=== PATIENT | female | born 1980 | race African-American/Black ===

== ENCOUNTER 2017-09-08 17:27 | Emergency (ER) | payer OTHER ==
[~2017-09-08] VITALS: Ht 165.1 cm; Wt 75.0 kg
[2017-09-08 19:20] LABS: CLARITY URINE CLEAR (CLEAR); COLOR URINE YELLOW (YELLOW); KETONES URINE NEGATIVE (NEGATIVE); LEUKOCYTE ESTERASE URINE NEGATIVE (NEGATIVE); NITRITE URINE NEGATIVE (NEGATIVE); OCCULT BLOOD URINE NEGATIVE (NEGATIVE); PH URINE 7.5 (4.5-8.0); PROTEIN URINE NEGATIVE (NEGATIVE); SPECIFIC GRAVITY URINE 1.021 (1.005-1.030)
[2017-09-08 20:04] LABS: HCG SCREEN NEGATIVE
[2017-09-08 20:06] LABS: CHLORIDE 108 mEq/L (98-107)
[2017-09-08 20:11] LABS: HEMATOCRIT. 38.3 % (36.0-48.0); HEMOGLOBIN. 12.4 g/dL (12.0-16.0); MEAN CORPUSCULAR HEMOGLOBIN 20.1 pg (28.0-32.0); MEAN CORPUSCULAR VOLUME 62.2 fL (81.0-99.0); MEAN PLATELET VOLUME 9.1 fl (7.4-10.4); PLATELET 259 x1000/uL (130-400); RED BLOOD CELL COUNT 6.17 mill/uL (4.2-5.4); RED CELL DISTRIBUTION WIDTH 15.8 % (11.6-14.6)
[2017-09-08 20:15] VITALS: BP 127/80
[2017-09-08 20:34] LABS: PLATELET ESTIMATE NORMAL
== END 2017-09-08 20:55 | disposition home or self-care (01) ==
LOC: ER 18:48
DX: R42 Dizziness and giddiness (principal); E05.90 Thyrotoxicosis, unspecified without thyrotoxic crisis or storm; F17.200 Nicotine dependence, unspecified, uncomplicated
CPT/HCPCS: 36415; 71045; 80053; 81003; 84443; 84703; 85025; 93005; 99285

== ENCOUNTER 2018-03-29 19:16 | Emergency (ER) | payer MEDICAID, OTHER ==
[~2018-03-29] VITALS: Ht 165.1 cm; Wt 74.0 kg
[2018-03-29 20:14] VITALS: BP 114/76
== END 2018-03-29 23:14 | disposition left against medical advice (07) ==
LOC: ER 19:16
DX: Z53.21 Procedure and treatment not carried out due to patient leaving prior to being seen by health care provider (principal)

== ENCOUNTER 2018-12-07 15:44 | Emergency (ER) | payer MEDICAID ==
[~2018-12-07] VITALS: Ht 165.1 cm; Wt 63.0 kg
[2018-12-07] MEDS ORDERED: KETOROLAC 60MG/2ML VIAL IM STA (18:02)
[2018-12-07] MEDS ORDERED: CYCLOBENZAPRINE 10MG TABLET PO ONE (18:15)
[2018-12-07 21:31] LABS: CLARITY URINE CLOUDY (CLEAR); COLOR URINE YELLOW (YELLOW); KETONES URINE NEGATIVE (NEGATIVE); LEUKOCYTE ESTERASE URINE 2+ (NEGATIVE); NITRITE URINE NEGATIVE (NEGATIVE); OCCULT BLOOD URINE NEGATIVE (NEGATIVE); PH URINE 5.5 (4.5-8.0); PROTEIN URINE NEGATIVE (NEGATIVE); SPECIFIC GRAVITY URINE 1.015 (1.005-1.030)
[2018-12-07] MEDS ORDERED: SULFAMETHOXAZOLE/TRIMETHOPRIM 800/160MG TABLET PO ONE (21:45)
[2018-12-07 21:50] VITALS: BP 120/91
== END 2018-12-07 21:50 | disposition home or self-care (01) ==
LOC: ER 15:44
DX: N39.0 Urinary tract infection, site not specified (principal); M54.5 Low back pain; F17.200 Nicotine dependence, unspecified, uncomplicated; Z98.890 Other specified postprocedural states
CPT/HCPCS: 81003; 81025; 96372; 99283; J1885

== ENCOUNTER 2020-08-06 17:13 | Emergency (ER) | payer MEDICAID, OTHER ==
[~2020-08-06] VITALS: Ht 165.1 cm; Wt 83.0 kg
[2020-08-06] MEDS ORDERED: METOCLOPRAMIDE HCL 10MG/2ML VIAL IV ONE (18:45)
[2020-08-06] MEDS ORDERED: DIPHENHYDRAMINE 50MG/ML VIAL IV ONE (18:45)
[2020-08-06 18:55] LABS: CHLORIDE 108 mEq/L (98-107)
[2020-08-06 19:04] LABS: BASOPHILS % 0.8 % (0.0-2.0); EOSINOPHILS % 1.5 % (0.0-5.0); HEMATOCRIT. 40.3 % (36.0-48.0); HEMOGLOBIN. 13.2 g/dL (12.0-16.0); LYMPHOCYTES % 12.3 % (20.0-50.0); MEAN CORPUSCULAR HEMOGLOBIN 19.5 pg (28.0-32.0); MEAN CORPUSCULAR VOLUME 59.5 fL (81.0-99.0); MEAN PLATELET VOLUME 9.4 fl (7.4-10.4); NEUTROPHILS % 75.4 % (40.0-76.0); PLATELET 293 x1000/uL (130-400); RED BLOOD CELL COUNT 6.78 mill/uL (4.2-5.4)
[2020-08-06 19:17] LABS: PLATELET ESTIMATE NORMAL
[2020-08-06 19:43] VITALS: BP 110/67
== END 2020-08-06 20:06 | disposition home or self-care (01) ==
LOC: ER 17:13
DX: G43.109 Migraine with aura, not intractable, without status migrainosus (principal); R03.0 Elevated blood-pressure reading, without diagnosis of hypertension; E78.00 Pure hypercholesterolemia, unspecified; E05.90 Thyrotoxicosis, unspecified without thyrotoxic crisis or storm
CPT/HCPCS: 36415; 70450; 80053; 85025; 93005; 96374; 96375; 99285; J1200; J2765; Z7610